=== PATIENT | male | born 1985 | race Caucasian/White ===

== ENCOUNTER 2017-07-16 11:26 | Emergency (ER) | payer OTHER ==
[~2017-07-16] VITALS: Ht 177.8 cm; Wt 101.0 kg
[2017-07-16 11:30] VITALS: BP 132/76
== END 2017-07-16 14:51 | disposition home or self-care (01) ==
LOC: ER 11:51
DX: R11.0 Nausea (principal); R42 Dizziness and giddiness
CPT/HCPCS: 99283